=== PATIENT | female | born 1995 | race Two or more races ===

== ENCOUNTER → 2021-07-06 | Outpatient (CLI) | payer OTHER ==
[2021-07-06 15:25] LABS: BASO # 0.1 10^3/uL (0.0-0.2); BASO % 0.8 % (0.0-1.0); EOS # 0.1 10^3/uL (0.0-0.5); EOS % 0.8 % (0.0-3.0); HEMOGLOBIN 8.9 g/dl (12.0-15.5); LYMPH # 1.5 10^3/uL (1.5-5.0); LYMPH % 22.7 % (24.0-44.0); MEAN CORPUSCULAR HEMOGLOBIN 21.2 pg (27.0-33.0); MEAN CORPUSCULAR HGB CONC 28.7 g/dl (32.0-36.5); MEAN CORPUSCULAR VOLUME 73.8 fl (80.0-96.0); MONO # 0.5 10^3/uL (0.0-0.8); NEUTROPHILS # 4.2 10^3/uL (1.5-8.5); NEUTROPHILS % 65.4 % (36.0-66.0); PLATELET COUNT, AUTOMATED 242 10^3/uL (150-450); WHITE BLOOD COUNT 6.5 10^3/uL (4.0-10.0)
[2021-07-06 15:47] LABS: ALBUMIN 2.7 GM/DL (3.2-5.2); ALT/SGPT 12 U/L (12-78); BILIRUBIN,TOTAL 0.2 MG/DL (0.2-1.0); BLOOD UREA NITROGEN 7 MG/DL (7-18); CALCIUM LEVEL 8.8 MG/DL (8.5-10.1); CARBON DIOXIDE LEVEL 25 MEQ/L (21-32); CHLORIDE LEVEL 106 MEQ/L (98-107); CREATININE FOR GFR 0.62 MG/DL (0.55-1.30); GLOMERULAR FILTRATION RATE > 60.0 (>60); GLUCOSE, FASTING 99 MG/DL (70-100); POTASSIUM SERUM 3.5 MEQ/L (3.5-5.1); SODIUM LEVEL 137 MEQ/L (136-145); TOTAL PROTEIN 7.3 GM/DL (6.4-8.2)
== END ==
LOC: M PLALAB 14:11
PROVIDERS: ATTEND Internal Medicine Infectious Disease
DX: B18.1 Chronic viral hepatitis B without delta-agent (principal)

== ENCOUNTER 2021-07-29 23:48 | Inpatient (IN) | payer OTHER ==
[~2021-07-29] VITALS: Ht 154.9 cm; Wt 66.5 kg
[2021-07-29 23:59] VITALS: BP 101/62
[2021-07-30] VITALS (22 sets, daily range): BP systolic 88–121; BP diastolic 51–83
[2021-07-30] MEDS ORDERED: LR 1,000 ML IV SCH (00:45)
[2021-07-30] MEDS ORDERED: OXYTOCIN INJ 10 UNITS/ML VIAL (J2590) IV PRN (00:45)
[2021-07-30] MEDS ORDERED: OXYTOCIN DRIP 30 UNITS in IV 1 EA IV PRN ×4 (00:45)
[2021-07-30] MEDS ORDERED: OXYTOCIN INJ 10 UNITS/ML VIAL (J2590) IM PRN (00:45)
[2021-07-30] MEDS ORDERED: TRANEXAMIC ACID INJection 1,000 MG in NS 100 ML IV PRN (00:45)
[2021-07-30] MEDS ORDERED: CARBOPROST TROMETHAMINE 250 MCG/ML AMP IM PRN (00:45)
[2021-07-30] MEDS ORDERED: OXYTOCIN DRIP 30 UNITS in IV 1 EA IV SCH ×2 (00:45→03:35)
[2021-07-30] MEDS ORDERED: METHYLERGONOVINE MALEATE 0.2 MG/ML VIAL (J2210) IM PRN (00:45)
[2021-07-30 00:57] LABS: HEMATOCRIT 33.7 % (36.0-47.0); HEMOGLOBIN 9.7 g/dl (12.0-15.5); MEAN CORPUSCULAR HEMOGLOBIN 20.7 pg (27.0-33.0); MEAN CORPUSCULAR HGB CONC 28.8 g/dl (32.0-36.5); MEAN CORPUSCULAR VOLUME 71.9 fl (80.0-96.0); PLATELET COUNT, AUTOMATED 194 10^3/uL (150-450); RED BLOOD COUNT 4.69 10^6/uL (4.00-5.40); WHITE BLOOD COUNT 2.9 10^3/uL (4.0-10.0)
[2021-07-30] MEDS ORDERED: FENTANYL 2MCG/ML ROPIVACAINE 0.2% IN 0.9% NACL 100ML IVBAG As Ordered ONE (01:49)
[2021-07-30] MEDS ORDERED: NALOXONE INJ 0.4MG/1ML VIAL (J2310 PER 1MG) IV PRN (03:10)
[2021-07-30] MEDS ORDERED: REFRIGERATOR IV KEYS XX PRN (03:10)
[2021-07-30] MEDS ORDERED: diphenhydrAMINE 50MG/ML VIAL (J1200) IV PRN (03:10)
[2021-07-30] MEDS ORDERED: ePHEDrine SULFATE 25 MG/5 ML(5MG/ML) SYRINGE IV PRN (03:10)
[2021-07-30] MEDS ORDERED: LACTATED RINGER'S 1000 ML IV PRN (03:10)
[2021-07-30] MEDS ORDERED: FENTANYL/ROPIVACAINE/NACL BAG 100 ML EPIDURAL SCH (03:10)
[2021-07-30] MEDS ORDERED: EPIDURAL/PCA KEYS XX PRN (03:10)
[2021-07-30] MEDS ORDERED: ONDANSETRON 4MG/2ML VIAL IV PRN (03:10)
[2021-07-30] MEDS ORDERED: EPIDURAL COMMENT XX SCH (03:10)
[2021-07-30] MEDS ORDERED: DOCUSATE SODIUM 100MG CAPSULE PO PRN (03:35)
[2021-07-30] MEDS ORDERED: MEASLES,MUMPS,RUBELLA VACCINE INJ (MMR-II) (90707) SC SCH (03:35)
[2021-07-30] MEDS ORDERED: DIBUCAINE 1% OINTMENT 30GM TOP PRN (03:35)
[2021-07-30] MEDS ORDERED: ANUSOL HC CREAM 30GM TOP PRN (03:35)
[2021-07-30] MEDS ORDERED: MOM 30ML SUSPENSION UDC PO PRN (03:35)
[2021-07-30] MEDS: PRENATAL VITAMINS CHEWABLE TABLET PO SCH (09:00)
[2021-07-30] MEDS: ACETAMINOPHEN 500 MG TAB PO PRN ×2 (12:05→20:14)
[2021-07-30] MEDS ORDERED: TENO30TAB PO (13:12)
[2021-07-30] MEDS: TENOFOVIR 300 MG PO SCH (16:50)
[2021-07-30] MEDS: IBUPROFEN 800 MG TAB PO PRN (17:16)
[2021-07-31] MEDS ORDERED: UNRESOLVED CLARIFICATION ENTRY XX SCH (00:01)
[2021-07-31] MEDS ORDERED: PRENCHW PO (02:36)
[2021-07-31] MEDS ORDERED: COLA100C5 PO (02:36)
[2021-07-31] MEDS ORDERED: ACET-683 PO (02:36)
[2021-07-31] MEDS ORDERED: IBUP80TA PO (02:36)
[2021-07-31] MEDS: IBUPROFEN 800 MG TAB PO PRN (04:45)
[2021-07-31 06:00] VITALS: BP 85/53
[2021-07-31] MEDS: PRENATAL VITAMINS CHEWABLE TABLET PO SCH (08:07)
[2021-07-31] MEDS: TENOFOVIR 300 MG PO SCH (08:08)
[2021-07-31] MEDS: ACETAMINOPHEN 500 MG TAB PO PRN (12:27)
== END 2021-07-31 12:30 | disposition home or self-care (01) | DRG 805 ==
LOC: M LDO 23:48 → M LDI 07-30 00:29 → M OBS 07-30 05:10
PROVIDERS: ADMIT Obstetrics & Gynecology; ATTEND Obstetrics & Gynecology
PROC: 10E0XZZ Delivery of Products of Conception, External Approach (ICD-10-PCS; principal; 2021-07-30)
DX: O98.42 Viral hepatitis complicating childbirth (principal); Z37.0 Single live birth; U07.1 COVID-19; B19.10 Unspecified viral hepatitis B without hepatic coma; Z3A.37 37 weeks gestation of pregnancy; D64.9 Anemia, unspecified; O99.02 Anemia complicating childbirth; O98.52 Other viral diseases complicating childbirth

== ENCOUNTER → 2021-08-31 | Outpatient (CLI) | payer OTHER ==
[~2021-08-31] MED LIST: ACET-683 PO; COLA100C5 PO; IBUP80TA PO; PRENCHW PO; TENO30TAB PO
[2021-08-31 13:12] LABS: BASO # 0.1 10^3/uL (0.0-0.2); EOS # 0.2 10^3/uL (0.0-0.5); EOS % 3.2 % (0.0-3.0); HEMATOCRIT 35.6 % (36.0-47.0); HEMOGLOBIN 10.3 g/dl (12.0-15.5); LYMPH # 1.8 10^3/uL (1.5-5.0); LYMPH % 35.1 % (24.0-44.0); MEAN CORPUSCULAR HEMOGLOBIN 22.3 pg (27.0-33.0); MEAN CORPUSCULAR HGB CONC 28.9 g/dl (32.0-36.5); MEAN CORPUSCULAR VOLUME 77.2 fl (80.0-96.0); MONO # 0.4 10^3/uL (0.0-0.8); MONO % 8.4 % (2.0-8.0); NEUTROPHILS # 2.6 10^3/uL (1.5-8.5); NEUTROPHILS % 51.3 % (36.0-66.0); PLATELET COUNT, AUTOMATED 344 10^3/uL (150-450); RED BLOOD COUNT 4.61 10^6/uL (4.00-5.40)
[2021-08-31 15:55] LABS: ALBUMIN 3.5 GM/DL (3.2-5.2); ALT/SGPT 16 U/L (12-78); BILIRUBIN,TOTAL 0.2 MG/DL (0.2-1.0); BLOOD UREA NITROGEN 13 MG/DL (7-18); CALCIUM LEVEL 9.7 MG/DL (8.5-10.1); CARBON DIOXIDE LEVEL 27 MEQ/L (21-32); CHLORIDE LEVEL 106 MEQ/L (98-107); CREATININE FOR GFR 0.74 MG/DL (0.55-1.30); GLOMERULAR FILTRATION RATE > 60.0 (>60); GLUCOSE, FASTING 90 MG/DL (70-100); IRON (FE) 39 UG/DL (50-170); POTASSIUM SERUM 3.8 MEQ/L (3.5-5.1); SODIUM LEVEL 139 MEQ/L (136-145); TOTAL IRON BINDING CAPACITY 391 UG/DL (250-450); TOTAL PROTEIN 7.9 GM/DL (6.4-8.2)
[2021-09-02 00:06] LABS: HBV 158000 IU/mL (.); log10 HBV IU/mL 5.199 (.)
== END ==
LOC: M PLALAB 10:59
PROVIDERS: ATTEND Internal Medicine Infectious Disease
DX: B18.1 Chronic viral hepatitis B without delta-agent (principal)

== ENCOUNTER → 2022-03-09 | Outpatient (CLI) | payer OTHER ==
[2022-03-09 14:30] LABS: BASO % 0.7 % (0.0-1.0); EOS # 0.1 10^3/uL (0.0-0.5); HEMATOCRIT 39.6 % (36.0-47.0); HEMOGLOBIN 12.6 g/dl (12.0-15.5); LYMPH # 2.1 10^3/uL (1.5-5.0); LYMPH % 34.7 % (24.0-44.0); MEAN CORPUSCULAR HEMOGLOBIN 27.5 pg (27.0-33.0); MEAN CORPUSCULAR HGB CONC 31.8 g/dl (32.0-36.5); MEAN CORPUSCULAR VOLUME 86.5 fl (80.0-96.0); MONO # 0.3 10^3/uL (0.0-0.8); MONO % 5.1 % (2.0-8.0); NEUTROPHILS # 3.5 10^3/uL (1.5-8.5); NEUTROPHILS % 58.2 % (36.0-66.0); PLATELET COUNT, AUTOMATED 329 10^3/uL (150-450); RED BLOOD COUNT 4.58 10^6/uL (4.00-5.40); WHITE BLOOD COUNT 6.1 10^3/uL (4.0-10.0)
[2022-03-09 15:09] LABS: ALBUMIN 3.9 GM/DL (3.2-5.2); ALT/SGPT 14 U/L (12-78); BILIRUBIN,TOTAL 0.4 MG/DL (0.2-1.0); BLOOD UREA NITROGEN 14 MG/DL (7-18); CALCIUM LEVEL 9.3 MG/DL (8.5-10.1); CARBON DIOXIDE LEVEL 25 MEQ/L (21-32); CHLORIDE LEVEL 106 MEQ/L (98-107); CREATININE FOR GFR 0.74 MG/DL (0.55-1.30); GLOMERULAR FILTRATION RATE > 60.0 (>60); GLUCOSE, FASTING 95 MG/DL (70-100); POTASSIUM SERUM 3.9 MEQ/L (3.5-5.1); SODIUM LEVEL 137 MEQ/L (136-145); TOTAL PROTEIN 8.6 GM/DL (6.4-8.2)
== END ==
LOC: M PLALAB 11:01
PROVIDERS: ATTEND Internal Medicine Infectious Disease
DX: B18.1 Chronic viral hepatitis B without delta-agent (principal)

== ENCOUNTER → 2022-10-04 | Outpatient (CLI) | payer OTHER ==
[2022-10-04 15:20] LABS: ALBUMIN 2.6 G/DL (3.2-5.2); ALKALINE PHOSPHATASE 61 U/L (46-116); ALT/SGPT < 9 U/L (7.0-40); AST/SGOT 13 U/L (<34); BILIRUBIN,TOTAL 0.3 MG/DL (0.3-1.2); BLOOD UREA NITROGEN 9 MG/DL (9-23); CALCIUM LEVEL 8.3 MG/DL (8.5-10.1); CARBON DIOXIDE LEVEL 23 MMOL/L (20-31); CHLORIDE LEVEL 104 MMOL/L (98-107); CREATININE FOR GFR 0.58 MG/DL (0.55-1.30); GLOMERULAR FILTRATION RATE > 60.0 (>60); GLUCOSE, FASTING 86 MG/DL (60-100); HCG, SERUM QUANTITATIVE 37438.8 MIU/ML (<4.2); POTASSIUM SERUM 3.6 MMOL/L (3.5-5.1); SODIUM LEVEL 132 MMOL/L (136-145)
[2022-10-04 19:16] LABS: HIV 1&2 SCREEN CENTAUR NEGATIVE (NEGATIVE)
== END ==
LOC: M PLALAB 10:53
PROVIDERS: ATTEND Internal Medicine Infectious Disease
DX: B18.1 Chronic viral hepatitis B without delta-agent (principal)

== ENCOUNTER → 2022-10-05 | Outpatient (REF) | payer OTHER ==
[2022-10-05 15:29] LABS: BASO % 0.5 % (0.0-1.0); EOS # 0.1 10^3/uL (0.0-0.5); EOS % 1.1 % (0.0-3.0); HEMOGLOBIN 10.1 g/dl (12.0-15.5); LYMPH # 1.7 10^3/uL (1.5-5.0); LYMPH % 31.1 % (24.0-44.0); MEAN CORPUSCULAR HEMOGLOBIN 26.2 pg (27.0-33.0); MEAN CORPUSCULAR HGB CONC 31.6 g/dl (32.0-36.5); MEAN CORPUSCULAR VOLUME 82.9 fl (80.0-96.0); MONO # 0.2 10^3/uL (0.0-0.8); MONO % 4.4 % (2.0-8.0); NEUTROPHILS # 3.4 10^3/uL (1.5-8.5); PLATELET COUNT, AUTOMATED 292 10^3/uL (150-450); RED BLOOD COUNT 3.86 10^6/uL (4.00-5.40); WHITE BLOOD COUNT 5.5 10^3/uL (4.0-10.0)
== END ==
LOC: M SFHCPLAZ 12:51
PROVIDERS: ATTEND Internal Medicine Infectious Disease
DX: B18.1 Chronic viral hepatitis B without delta-agent (principal)

== ENCOUNTER 2023-02-20 17:08 | Inpatient (IN) | payer OTHER ==
[2023-02-20] VITALS (7 sets, daily range): BP systolic 101–152; BP diastolic 65–86; O2SAT 97
[~2023-02-20] VITALS: Ht 152.4 cm; Wt 68.7 kg
[2023-02-20] MEDS ORDERED: HOME MED LIST COMPLETE! XX SCH (17:30)
[2023-02-20] MEDS ORDERED: LACTATED RINGER'S 1000 ML IV STA (17:50)
[2023-02-20] MEDS ORDERED: METHYLERGONOVINE MALEATE 0.2MG/ML 1ML VIAL IM PRN (17:50)
[2023-02-20] MEDS ORDERED: OXYTOCIN DRIP 30 UNITS in IV 1 EA IV PRN (17:50)
[2023-02-20] MEDS ORDERED: LR 1,000 ML IV SCH (17:50)
[2023-02-20] MEDS ORDERED: TRANEXAMIC ACID INJection 1,000 MG in NS 100 ML IV PRN (17:50)
[2023-02-20] MEDS ORDERED: CARBOPROST TROMETHAMINE 250 MCG/ML AMP IM PRN (17:50)
[2023-02-20] MEDS ORDERED: OXYTOCIN INJ 10UNITS/ML 1ML VIAL IM PRN (17:50)
[2023-02-20] MEDS ORDERED: LIDOCAINE 1% MDV 20ML VIAL INFIL PRN (17:50)
[2023-02-20 18:17] LABS: MEAN CORPUSCULAR HEMOGLOBIN 20.8 pg (27.0-33.0); MEAN CORPUSCULAR VOLUME 71.8 fl (80.0-96.0); PLATELET COUNT, AUTOMATED 204 10^3/uL (150-450); RED BLOOD COUNT 4.32 10^6/uL (4.00-5.40); WHITE BLOOD COUNT 4.8 10^3/uL (4.0-10.0)
[2023-02-20] MEDS ORDERED: IBUPROFEN 800 MG TAB PO PRN (19:35)
[2023-02-20] MEDS ORDERED: RHOGAM 300MCG (1500IU) INJ IM SCH (19:35)
[2023-02-20] MEDS ORDERED: METHYLERGONOVINE MALEATE 0.2 MG TAB PO PRN (19:35)
[2023-02-20] MEDS ORDERED: DOCUSATE SODIUM 100MG CAPSULE PO PRN (19:35)
[2023-02-20] MEDS ORDERED: IBUPROFEN 600MG TAB PO PRN (19:35)
[2023-02-20] MEDS ORDERED: ACETAMINOPHEN 500 MG TAB PO PRN (19:35)
[2023-02-20] MEDS ORDERED: DIBUCAINE 1% OINTMENT 30GM TOP PRN (19:35)
[2023-02-21] MEDS: ACETAMINOPHEN TAB 650MG DOSE (2X325MG) PO PRN ×3 (02:58→20:44)
[2023-02-21 06:08] VITALS: BP 110/53; O2SAT 100
[2023-02-21 06:17] LABS: HEMATOCRIT 27.5 % (36.0-47.0); HEMOGLOBIN 7.9 g/dl (12.0-15.5); MEAN CORPUSCULAR HEMOGLOBIN 20.5 pg (27.0-33.0); MEAN CORPUSCULAR HGB CONC 28.7 g/dl (32.0-36.5); MEAN CORPUSCULAR VOLUME 71.4 fl (80.0-96.0); PLATELET COUNT, AUTOMATED 142 10^3/uL (150-450); RED BLOOD COUNT 3.85 10^6/uL (4.00-5.40); WHITE BLOOD COUNT 7.1 10^3/uL (4.0-10.0)
[2023-02-21] MEDS: PRENATAL VITAMINS CHEWABLE TABLET PO SCH (10:48)
[2023-02-21 18:20] VITALS: BP 93/49; O2SAT 97
[2023-02-22 06:00] VITALS: BP 93/54; O2SAT 100
[2023-02-22] MEDS: PRENATAL VITAMINS CHEWABLE TABLET PO SCH (08:38)
[2023-02-22] MEDS ORDERED: IBUP-1022 PO (08:57)
[2023-02-22] MEDS ORDERED: ACET1TAB55 PO (08:57)
[2023-02-22] MEDS ORDERED: MEASLES,MUMPS,RUBELLA VACCINE INJ (MMR-II) SC.IMMUN ONE (09:00)
== END 2023-02-22 15:15 | disposition home or self-care (01) | DRG 807 ==
LOC: M LDO 17:08 → M LDI 17:52 → M OBS 20:53
PROVIDERS: ADMIT Obstetrics & Gynecology; ATTEND Obstetrics & Gynecology
PROC: 10E0XZZ Delivery of Products of Conception, External Approach (ICD-10-PCS; principal; 2023-02-20)
PROC: 10907ZC Drainage of Amniotic Fluid, Therapeutic from Products of Conception, Via Natural or Artificial Opening (ICD-10-PCS; 2023-02-20)
DX: O69.82X0 Labor and delivery complicated by other cord entanglement, without compression, not applicable or unspecified (principal); Z37.0 Single live birth; Z3A.38 38 weeks gestation of pregnancy

== ENCOUNTER → 2023-04-25 | Outpatient (CLI) | payer OTHER ==
[~2023-04-25] MED LIST changes: +ACET1TAB55 PO; +IBUP-1022 PO
[2023-04-25 13:47] LABS: BASO # 0.1 10^3/uL (0.0-0.2); BASO % 1.1 % (0.0-1.0); EOS # 0.1 10^3/uL (0.0-0.5); EOS % 1.1 % (0.0-3.0); HEMATOCRIT 37.4 % (36.0-47.0); HEMOGLOBIN 11.6 g/dl (12.0-15.5); LYMPH % 37.4 % (24.0-44.0); MEAN CORPUSCULAR HEMOGLOBIN 25.1 pg (27.0-33.0); MONO # 0.3 10^3/uL (0.0-0.8); NEUTROPHILS # 2.9 10^3/uL (1.5-8.5); NEUTROPHILS % 54.2 % (36.0-66.0); PLATELET COUNT, AUTOMATED 307 10^3/uL (150-450); RED BLOOD COUNT 4.62 10^6/uL (4.00-5.40); WHITE BLOOD COUNT 5.4 10^3/uL (4.0-10.0)
[2023-04-26 01:29] LABS: ALBUMIN 3.5 G/DL (3.2-5.2); ALKALINE PHOSPHATASE 79 U/L (46-116); ALT/SGPT < 9 U/L (7.0-40); AST/SGOT 10 U/L (<34); BILIRUBIN,TOTAL 0.2 MG/DL (0.3-1.2); BLOOD UREA NITROGEN 13 MG/DL (9-23); CALCIUM LEVEL 8.8 MG/DL (8.5-10.1); CARBON DIOXIDE LEVEL 23 MMOL/L (20-31); CHLORIDE LEVEL 108 MMOL/L (98-107); CREATININE FOR GFR 0.67 MG/DL (0.55-1.30); GLOMERULAR FILTRATION RATE > 60.0 (>60); GLUCOSE, FASTING 94 MG/DL (60-100); POTASSIUM SERUM 4.1 MMOL/L (3.5-5.1); SODIUM LEVEL 141 MMOL/L (136-145); TOTAL PROTEIN 7.6 G/DL (5.7-8.2)
== END ==
LOC: M PLALAB 09:06
PROVIDERS: ATTEND Internal Medicine Infectious Disease
DX: B18.1 Chronic viral hepatitis B without delta-agent (principal)

== ENCOUNTER → 2023-10-24 | Outpatient (CLI) | payer OTHER ==
[2023-10-24 15:53] LABS: BASO # 0.1 10^3/uL (0.0-0.2); BASO % 1.1 % (0.0-1.0); EOS # 0.1 10^3/uL (0.0-0.5); EOS % 1.3 % (0.0-3.0); HEMATOCRIT 35.6 % (36.0-47.0); HEMOGLOBIN 10.6 g/dl (12.0-15.5); LYMPH # 1.8 10^3/uL (1.5-5.0); MEAN CORPUSCULAR HGB CONC 29.8 g/dl (32.0-36.5); MEAN CORPUSCULAR VOLUME 80.5 fl (80.0-96.0); MONO # 0.4 10^3/uL (0.0-0.8); MONO % 7.6 % (2.0-8.0); NEUTROPHILS # 2.3 10^3/uL (1.5-8.5); NEUTROPHILS % 50.8 % (36.0-66.0); PLATELET COUNT, AUTOMATED 326 10^3/uL (150-450); RED BLOOD COUNT 4.42 10^6/uL (4.00-5.40); WHITE BLOOD COUNT 4.6 10^3/uL (4.0-10.0)
[2023-10-24 16:21] LABS: ALBUMIN 3.1 G/DL (3.2-5.2); ALKALINE PHOSPHATASE 86 U/L (46-116); ALT/SGPT 9 U/L (7.0-40); AST/SGOT < 8 U/L (<34); BILIRUBIN,DIRECT 0.1 MG/DL (<0.4); BILIRUBIN,TOTAL 0.3 MG/DL (0.3-1.2); TOTAL PROTEIN 7.2 G/DL (5.7-8.2)
== END ==
LOC: M PLALAB 12:59
PROVIDERS: ATTEND Internal Medicine Infectious Disease
DX: B18.1 Chronic viral hepatitis B without delta-agent (principal)

== ENCOUNTER → 2024-05-28 | Outpatient (CLI) | payer OTHER ==
[2024-05-28 13:09] LABS: BASO # 0.1 10^3/uL (0.0-0.2); BASO % 0.8 % (0.0-1.0); EOS # 0.1 10^3/uL (0.0-0.5); EOS % 1.4 % (0.0-3.0); HEMATOCRIT 34.2 % (36.0-47.0); HEMOGLOBIN 10.7 g/dl (12.0-15.5); LYMPH # 1.9 10^3/uL (1.5-5.0); LYMPH % 25.4 % (24.0-44.0); MEAN CORPUSCULAR HEMOGLOBIN 24.2 pg (27.0-33.0); MEAN CORPUSCULAR HGB CONC 31.3 g/dl (32.0-36.5); MEAN CORPUSCULAR VOLUME 77.4 fl (80.0-96.0); MONO # 0.5 10^3/uL (0.0-0.8); MONO % 6.5 % (2.0-8.0); NEUTROPHILS # 4.8 10^3/uL (1.5-8.5); NEUTROPHILS % 65.4 % (36.0-66.0); PLATELET COUNT, AUTOMATED 337 10^3/uL (150-450); RED BLOOD COUNT 4.42 10^6/uL (4.00-5.40); WHITE BLOOD COUNT 7.4 10^3/uL (4.0-10.0)
[2024-05-28 13:43] LABS: ALBUMIN 3.2 G/DL (3.2-5.2); ALKALINE PHOSPHATASE 53 U/L (35-104); ALT/SGPT 10 U/L (7.0-40); AST/SGOT 8 U/L (<34); BILIRUBIN,TOTAL 0.2 MG/DL (0.3-1.2); BLOOD UREA NITROGEN 10 MG/DL (9-23); CALCIUM LEVEL 8.9 MG/DL (8.5-10.1); CARBON DIOXIDE LEVEL 24 MMOL/L (20-31); CHLORIDE LEVEL 107 MMOL/L (98-107); CREATININE FOR GFR 0.55 MG/DL (0.55-1.30); GLOMERULAR FILTRATION RATE > 60.0 (>60); GLUCOSE, FASTING 101 MG/DL (60-100); SODIUM LEVEL 135 MMOL/L (136-145); TOTAL PROTEIN 7.7 G/DL (5.7-8.2)
[2024-05-28 14:04] LABS: HCG, SERUM QUALITATIVE POSITIVE (NEGATIVE)
== END ==
LOC: M PLALAB 11:15
PROVIDERS: ATTEND Internal Medicine Infectious Disease
DX: B18.1 Chronic viral hepatitis B without delta-agent (principal)

== ENCOUNTER 2024-06-11 09:38 | Emergency (ER) | payer OTHER ==
[~2024-06-11] VITALS: Ht 152.4 cm; Wt 59.1 kg
[2024-06-11 11:22] LABS: BASO # 0.1 10^3/uL (0.0-0.2); BASO % 0.5 % (0.0-1.0); EOS # 0.1 10^3/uL (0.0-0.5); EOS % 0.7 % (0.0-3.0); HEMATOCRIT 30.5 % (36.0-47.0); HEMOGLOBIN 9.5 g/dl (12.0-15.5); LYMPH # 1.5 10^3/uL (1.5-5.0); MEAN CORPUSCULAR HEMOGLOBIN 23.9 pg (27.0-33.0); MEAN CORPUSCULAR HGB CONC 31.1 g/dl (32.0-36.5); MEAN CORPUSCULAR VOLUME 76.6 fl (80.0-96.0); MONO # 0.6 10^3/uL (0.0-0.8); MONO % 6.4 % (2.0-8.0); NEUTROPHILS # 7.1 10^3/uL (1.5-8.5); PLATELET COUNT, AUTOMATED 358 10^3/uL (150-450); RED BLOOD COUNT 3.98 10^6/uL (4.00-5.40); WHITE BLOOD COUNT 9.3 10^3/uL (4.0-10.0)
[2024-06-11 14:35] VITALS: BP 108/49; TEMP 98.3; O2SAT 99
[2024-06-12] MEDS ORDERED: IBUP-1114 PO (14:32)
[2024-06-14] MEDS ORDERED: COLA100C5 PO (09:47)
[2024-06-14] MEDS ORDERED: AMOX875T2 PO (09:47)
[2024-06-14] MEDS ORDERED: FERR324T21 PO (10:01)
== END 2024-06-11 14:35 | disposition home or self-care (01) ==
LOC: M ED 09:38
DX: O04.89 (Induced) termination of pregnancy with other complications (principal); N93.9 Abnormal uterine and vaginal bleeding, unspecified; Z3A.01 Less than 8 weeks gestation of pregnancy; D64.9 Anemia, unspecified; Z79.1 Long term (current) use of non-steroidal anti-inflammatories (NSAID)

== ENCOUNTER → 2024-07-31 | Outpatient (CLI) | payer OTHER ==
[~2024-07-31] MED LIST changes: +AMOX875T2 PO; +FERR324T21 PO; +IBUP-1114 PO
[2024-07-31 13:57] LABS: APPEARANCE, URINE CLEAR (CLEAR); BACTERIA, URINE AUTO NEGATIVE (NEGATIVE); BILIRUBIN, URINE AUTO NEGATIVE (NEGATIVE); BLOOD, URINE BLOOD 2+ (NEGATIVE); COLOR, URINE YELLOW (YELLOW); GLUCOSE, URINE (UA) AUTO NEGATIVE (NEGATIVE); KETONE, URINE AUTO NEGATIVE (NEGATIVE); LEUKOCYTE ESTERASE, URINE AUTO TRACE (NEGATIVE); NITRITE, URINE AUTO NEGATIVE (NEGATIVE); PROTEIN, URINE AUTO NEGATIVE (NEGATIVE); RBC, URINE AUTO 8 /HPF (0-3); SQUAMOUS EPITHELIAL CELL UR AU 2 /HPF (0-6); UROBILINOGEN, URINE AUTO 0.2 mg/dL (0.0-2.0); WBC, URINE AUTO 12 /HPF (0-3)
[2024-07-31 14:10] LABS: BASO # 0.1 10^3/uL (0.0-0.2); BASO % 0.8 % (0.0-1.0); EOS # 0.1 10^3/uL (0.0-0.5); EOS % 1.5 % (0.0-3.0); HEMATOCRIT 36.9 % (36.0-47.0); HEMOGLOBIN 12.1 g/dl (12.0-15.5); LYMPH # 2.5 10^3/uL (1.5-5.0); LYMPH % 42.3 % (24.0-44.0); MEAN CORPUSCULAR HGB CONC 32.8 g/dl (32.0-36.5); MEAN CORPUSCULAR VOLUME 85.4 fl (80.0-96.0); MONO # 0.4 10^3/uL (0.0-0.8); MONO % 6.1 % (2.0-8.0); NEUTROPHILS # 2.9 10^3/uL (1.5-8.5); PLATELET COUNT, AUTOMATED 285 10^3/uL (150-450); RED BLOOD COUNT 4.32 10^6/uL (4.00-5.40); WHITE BLOOD COUNT 5.9 10^3/uL (4.0-10.0)
== END ==
LOC: M PLALAB 10:28
PROVIDERS: ATTEND Internal Medicine Infectious Disease
DX: D50.8 Other iron deficiency anemias (principal)

== ENCOUNTER → 2024-11-20 | Outpatient (CLI) | payer OTHER ==
[2024-11-20 15:38] LABS: BASO # 0.1 10^3/uL (0.0-0.2); BASO % 0.9 % (0.0-1.0); EOS # 0.1 10^3/uL (0.0-0.5); EOS % 1.3 % (0.0-3.0); HEMATOCRIT 41.5 % (36.0-47.0); HEMOGLOBIN 13.5 g/dl (12.0-15.5); LYMPH # 1.9 10^3/uL (1.5-5.0); LYMPH % 34.6 % (24.0-44.0); MEAN CORPUSCULAR HEMOGLOBIN 29.2 pg (27.0-33.0); MEAN CORPUSCULAR HGB CONC 32.5 g/dl (32.0-36.5); MEAN CORPUSCULAR VOLUME 89.8 fl (80.0-96.0); MONO # 0.3 10^3/uL (0.0-0.8); MONO % 5.2 % (2.0-8.0); NEUTROPHILS # 3.1 10^3/uL (1.5-8.5); NEUTROPHILS % 57.8 % (36.0-66.0); PLATELET COUNT, AUTOMATED 303 10^3/uL (150-450); RED BLOOD COUNT 4.62 10^6/uL (4.00-5.40); WHITE BLOOD COUNT 5.3 10^3/uL (4.0-10.0)
== END ==
LOC: M PLALAB 14:26
PROVIDERS: ATTEND Internal Medicine Infectious Disease
DX: B18.1 Chronic viral hepatitis B without delta-agent (principal); D50.8 Other iron deficiency anemias

== ENCOUNTER → 2025-05-21 | Outpatient (CLI) | payer OTHER ==
[~2025-05-21] MED LIST changes: -IBUP-1022 PO; +IBUP600T42 PO
[2025-05-21 15:38] LABS: BASO # 0.1 10^3/uL (0.0-0.2); BASO % 0.8 % (0.0-1.0); EOS # 0.1 10^3/uL (0.0-0.5); EOS % 1.7 % (0.0-3.0); LYMPH # 2.6 10^3/uL (1.5-5.0); LYMPH % 36.8 % (24.0-44.0); MONO # 0.4 10^3/uL (0.0-0.8); MONO % 5.5 % (2.0-8.0); NEUTROPHILS # 3.9 10^3/uL (1.5-8.5); NEUTROPHILS % 55.1 % (36.0-66.0); PLATELET COUNT, AUTOMATED 308 10^3/uL (150-450)
[2025-05-21 15:58] LABS: ALT/SGPT 15 U/L (7.0-40); AST/SGOT 12 U/L (<34)
== END ==
LOC: M PLALAB 13:04
PROVIDERS: ATTEND Internal Medicine Infectious Disease
DX: B18.1 Chronic viral hepatitis B without delta-agent (principal)